=== PATIENT | female | born 1935 | race Caucasian/White ===

== ENCOUNTER 2017-03-17 05:42 | Emergency (ER) | payer OTHER, BC ==
[~2017-03-17] VITALS: Ht 162.6 cm; Wt 67.0 kg
[2017-03-17] MEDS ORDERED: LOSARTAN POTASS50 MG PO (07:05)
[2017-03-17] MEDS ORDERED: SENEXON8.6 MG PO (07:06)
[2017-03-17] MEDS ORDERED: ELIQUIS2.5 MG PO (07:06)
[2017-03-17] MEDS ORDERED: NP THYROID30 MG PO (07:07)
[2017-03-17] MEDS ORDERED: FUROSEMIDE20 MG PO (07:07)
[2017-03-17] MEDS ORDERED: REMERON30 M2 PO (07:08)
[2017-03-17] MEDS ORDERED: SEROQUEL12.5 MG PO (07:08)
[2017-03-17] MEDS ORDERED: ATIVAN0.5 MG PO (07:09)
[2017-03-17 10:22] VITALS: BP 189/54
== END 2017-03-17 10:24 | disposition home or self-care (01) ==
LOC: EME 05:42 → EDBD 05:42 → EME 10:24
PROC: 3E0234Z Introduction of Serum, Toxoid and Vaccine into Muscle, Percutaneous Approach (ICD-10-PCS; principal; 2017-03-17)
DX: S00.83XA Contusion of other part of head, initial encounter (principal); S61.411A Laceration without foreign body of right hand, initial encounter; W01.198A Fall on same level from slipping, tripping and stumbling with subsequent striking against other object, initial encounter; Y92.129 Unspecified place in nursing home as the place of occurrence of the external cause; Z23 Encounter for immunization; I10 Essential (primary) hypertension; F03.90 Unspecified dementia, unspecified severity, without behavioral disturbance, psychotic disturbance, mood disturbance, and anxiety; M06.9 Rheumatoid arthritis, unspecified; F32.9 Major depressive disorder, single episode, unspecified; Z86.73 Personal history of transient ischemic attack (TIA), and cerebral infarction without residual deficits
CPT/HCPCS: 70450; 73130